=== PATIENT | female | born 1950 | race Caucasian/White ===

== ENCOUNTER 2017-12-11 14:30 | Outpatient (CLI) | payer BC | END 2017-12-11 14:31 | disposition home or self-care (01) | LOC: BICMAMMO 14:30 | PROVIDERS: ATTEND Obstetrics & Gynecology | DX: Z12.31 Encounter for screening mammogram for malignant neoplasm of breast (principal); Z80.3 Family history of malignant neoplasm of breast | CPT/HCPCS: 77063; 77067 ==

== ENCOUNTER 2019-06-17 07:52 | Outpatient (CLI) | payer BC ==
--- NOTE | 2019-06-17 08:29 | BD ---
DEXA BONE DENSITY STUDY: Date: 06/17/2019 HISTORY: Encounter for screening for osteoporosis. COMPARISON: None. FINDINGS: Lumbar Spine: BMD (g/cm2) L1 0.725 T-Score: -2.4 Z-Score: -0.5 L2 0.756 T-Score: -2.5 Z-Score: -0.3 L3 0.925 T-Score: -1.4 Z-Score: 0.8 L4 0.748 T-Score: -2.8 Z-Score: -0.5 L1-L4 0.792 T-Score: -2.3 Z-Score: -0.1 Left Femoral Neck: 0.632 T-Score: -2.0 Z-Score: -0.1 Total Femur: 0.858 T-Score: -0.7 Z-Score: 0.9 WHO Classification: Osteopenia. 10 YEAR FRACTURE RISK: Major osteoporotic fracture: 12% Hip fracture: 2.2% IMPRESSION: Osteopenia with fracture risk as above. POS: CET
== END 2019-06-17 07:53 | disposition home or self-care (01) ==
LOC: BICMAMMO 07:52
PROVIDERS: ATTEND Obstetrics & Gynecology
DX: Z13.820 Encounter for screening for osteoporosis (principal); M85.89 Other specified disorders of bone density and structure, multiple sites
CPT/HCPCS: 77080

== ENCOUNTER 2020-06-05 17:30 | Outpatient (CLI) | payer BC | END 2020-06-05 17:31 | disposition home or self-care (01) | LOC: SLEEPLAB 17:30 | PROVIDERS: ATTEND Internal Medicine | DX: G47.33 Obstructive sleep apnea (adult) (pediatric) (principal); R06.83 Snoring; I10 Essential (primary) hypertension; G47.10 Hypersomnia, unspecified; G47.31 Primary central sleep apnea | CPT/HCPCS: 95806 ==

== ENCOUNTER 2020-08-23 19:30 | Outpatient (CLI) | payer BC | END 2020-08-23 19:31 | disposition home or self-care (01) | LOC: SLEEPLAB 19:30 | PROVIDERS: ATTEND Internal Medicine | DX: G47.33 Obstructive sleep apnea (adult) (pediatric) (principal); I10 Essential (primary) hypertension; G47.10 Hypersomnia, unspecified; E66.9 Obesity, unspecified; Z68.27 Body mass index [BMI] 27.0-27.9, adult | CPT/HCPCS: 95811 ==

== ENCOUNTER 2021-03-13 13:31 | Outpatient (CLI) | payer BC ==
[~2021-03-13 13:31] MED LIST: Magnevist 469MG/ML 20 ML VIAL ONE
== END 2021-03-13 13:32 | disposition home or self-care (01) ==
LOC: BICMRI 13:31
PROVIDERS: ATTEND Student in an Organized Health Care Education/Training Program
DX: R19.00 Intra-abdominal and pelvic swelling, mass and lump, unspecified site (principal)
CPT/HCPCS: 72197; A9579

== ENCOUNTER 2023-10-30 08:39 | Outpatient (CLI) | payer BC | END 2023-10-30 08:40 | disposition home or self-care (01) | LOC: SCSMRI 08:39 | PROVIDERS: ATTEND Family Medicine | DX: K76.89 Other specified diseases of liver (principal); K86.2 Cyst of pancreas | CPT/HCPCS: 74183 ==

== ENCOUNTER 2023-12-02 13:25 | Outpatient (CLI) | payer BC ==
[2023-12-02] MEDS ORDERED: Sincalide 5 MCG VIAL ONE (15:58)
[2023-12-02] MEDS ORDERED: Sterile Water 10 ML ONE (15:59)
== END 2023-12-02 13:26 | disposition home or self-care (01) ==
LOC: NM 13:25
PROVIDERS: ATTEND Physician Assistant Medical
DX: R10.11 Right upper quadrant pain (principal); K76.89 Other specified diseases of liver
CPT/HCPCS: 78227; A9537; J2805